=== PATIENT | female | born 1975 | race Caucasian/White ===

== ENCOUNTER 2017-02-27 00:29 | Inpatient (IN) | payer SELFPAY ==
[2017-02-27 00:43] LABS: Hemoglobin 15.3 g/dL (12.0-16.0); Red Blood Cell (RBC) Count 4.64 mill/uL (4.20-5.40); White Blood Cell (WBC) Count 11.6 thou/uL (4.8-10.8)
[2017-02-27 00:44] LABS: #Basophils 0.1 thou/uL (0.0-0.2); #Eosinphils 0.1 thou/uL (0.0-0.7); #Monocytes 0.5 thou/uL (0.11-0.59); #Neutrophils 7.9 thou/uL (1.40-6.50); %Basophils 0.8 % (0.0-1.0); %Eosinophils 0.8 % (0.0-10.0); %Lymphocytes 25.9 % (21.0-51.0); %Monocytes 4.4 % (0.0-10.0); Mean Corpuscular HGB CONC 33.6 g/dL (32.0-36.0); Mean Corpuscular Hemoglobin 33.1 pg (27.0-31.0); Mean Corpuscular Volume 98.4 fl (81.0-99.0); Mean Platelet Volume 8.1 fL (7.4-10.4); Platelet Count 220 thou/uL (130-400); RBC Distribution Width 11.6 % (11.5-14.5)
[2017-02-27 00:53] LABS: Bilirubin Negative (Negative); Blood, Urine Negative (Negative); Clarity CLEAR (Clear); Glucose, Urine (Dipstick) Negative (Negative); Leukocyte Negative (Negative); Nitrite Negative (Negative); Protein, Urine (Dipstick) Negative (Neg-Trace); Urobilinogen 0.2 mg/dL (0.2-1.0)
[2017-02-27 01:03] LABS: Amphetamine Not Detected (NotDetected); Barbiturates Screen Not Detected (NotDetected); Benzodiazepine Screen Detected (NotDetected); Cocaine Metabolite Screen Detected (NotDetected); Medtox Control Line Valid? VALID (VALID); Medtox Reader # READER 4; Methadone Not Detected (NotDetected); Methamphetamine Not Detected (NotDetected); Opiate Screen Not Detected (NotDetected); Oxycodone Screen Not Detected (NotDetected); Phencyclidine (PCP) Not Detected (NotDetected); THC/Cannabinoid Screen Detected (NotDetected); Tricyclic Screen Not Detected (NotDetected)
[2017-02-27 01:10] LABS: ALT (SGPT) 24 U/L (8-55); AST (SGOT) 18 U/L (5-34); Albumin 4.2 g/dL (3.5-5.0); Alkaline Phosphatase 78 U/L (40-150); Anion Gap 16 mmol/L (10-20); BUN (Urea Nitrogen) 14 mg/dL (7.0-18.7); Bilirubin, Total 0.4 mg/dL (0.2-1.2); Calc. Creatinine Clearance 0 mL/min (70-130); Carbon Dioxide 22 mmol/L (22-29); Chloride 104 mmol/L (98-107); Estimated GFR-MDRD 78; Globulin 3.6 g/dL (2.4-3.5); Glucose 124 mg/dL (70-105); Potassium 3.5 mmol/L (3.5-5.1); Protein, Total 7.8 g/dL (6.0-8.3); Sodium 138 mmol/L (136-145)
[2017-02-27 01:11] LABS: Acetaminophen Less than 6.0 mcg/mL (10.0-30.0); Alcohol Less than 10 mg/dL (Less than 10); Salicylate Less than 8.0 mg/dL (15.0-30.0)
[2017-02-27 01:29] LABS: Thyroid Stimulating Hormone 3.4098 uIU/mL (0.35-4.94)
[2017-02-27 01:41] LABS: Base Excess-Venous -4.9 mmol/L (-30.0-30.0); Bicarbonate (HCO3v) 23.1 mmol/L (1.0-85.0); CO2 Tension (PvCO2) 53.8 mmHg (41.0-51.0); Calcium, Ionized 1.06 mmol/L (1.12-1.32); Hemoglobin - Calc 14.7 g/dL (12.0-18.0); Potassium 3.9 mmol/L (3.4-4.7); T. Carbon Dioxide 24.8 mmol/L (1.0-85.0); pH (Venous) 7.242 (7.35-7.45); vO2 Saturation-calc 86.6 % (0.0-100.0)
[2017-02-27 01:43] LABS: BHCG - Serum Negative (NEGATIVE); Pregs Control Background? CLEAR/WHITE (CLR/WHITE); Pregs Control Bar Appear? YES (CONTROL BAR)
[2017-02-27 02:43] LABS: Actual Bicarbonate (HCO3v) 17 mEq/L (22-26); Base Excess -6.4 mEq/L (0 (+/- 2.5)); Calcium, Ionized 1.03 mmol/L (1.16-1.32); Chloride (ABG LAB) 106 mmol/L (98-106); Hematocrit-VBG 42.7 % (35-45); Hemoglobin (Hb) 14.4 g/dL (11.7-15.5); Potassium - ABG Lab 4.6 mmol/L (3.70-5.30); Sodium 138.3 mmol/L (133-146); pH (venous) 7.38 (7.35-7.45)
[2017-02-27 02:44] LABS: Analyzer IN Cardio ER
[2017-02-27] MEDS ORDERED: Lorazepam 2 MG/ML VIAL ONE ×2 (05:36→05:44)
[2017-02-27] MEDS ORDERED: Haloperidol Lactate 5 MG/ML VIAL ONE (05:45)
--- NOTE | 2017-02-27 07:41 | CT ---
PRELIMINARY REPORT/[facility]/EMERGENCY AFTER HOURS PROCEDURE: EXAM: CT Head Without Intravenous Contrast CLINICAL HISTORY: 41 years old, female; Signs and symptoms; Altered mental status/memory loss; Confusion or disorientat ion; Patient HX: ; Pt presents via ems, found unresponsive in friends front yard, which he proceeded to put her in the car and took her to her parents house which was where ems found her on arrival to scene. Pt has HX of seizures, overdose on xanax, and havy alcohol intake. Ems reports gcs of 8, responsive to painful stimuli. Zofran and ivf given en route and nasal trumpet in place TECHNIQUE: Axial computed tomography images of the head/brain without intravenous contrast. COMPARISON: No relevant prior studies available. FINDINGS: No definite acute skull fracture. Mild mucosal thickening in the ethmoid sinuses. Included paranasal sinuses otherwise appear essentially clear. No acute intracranial hemorrhage or mass effect. Ventricle size is normal for age. No definite acute infarct by CT. MRI could be more sensitive/specific for an acute infarct if clinically indicated. IMPRESSION: No acute intracranial bleed or mass effect. No definite acute infarct by CT, see above. Thank you for allowing us to participate in the care of your patient. Dictated and Authenticated by: John Lima MD 02/27/2017 1:32 AM Central Time ([place] & [place]) FINAL REPORT CT BRAIN WITHOUT CONTRAST: I agree with the preliminary report given by Dr. Jhon Lima of [facility]. POS: [facility]
--- NOTE | 2017-02-27 07:43 | CT ---
PRELIMINARY REPORT/[facility]/EMERGENCY AFTER HOURS PROCEDURE: EXAM: CT Cervical Spine Without Intravenous Contrast CLINICAL HISTORY: 41 years old, female; Injury or trauma; Injury Posible fall; Initial encounter; Abrasion; Patient HX: Pt presents via ems, found unresponsive in friends front yard, which he proceeded to put her in the car and took her to her parents house which was where ems found her on arrival to scene. Pt has HX of seizures, overdose on xanax, and havy alcohol intake. Ems reports gcs of 8, responsive to painful st imuli. Zofran and ivf given en route and nasal trumpet in place TECHNIQUE: Axial computed tomography images of the cervical spine without intravenous contrast. Coronal and sagittal reformatted images were created and reviewed. COMPARISON: No relevant prior studies available. FINDINGS: On axial CT images, no definite acute fracture is visible. Sagittal and coronal reconstructions show no fracture or subluxation. Mild degenerative disc changes and facet joint arthritis at several levels. No definite/significant disc herniation by CT, MRI could be more sensitive if clinically indicated. IMPRESSION: No definite acute fracture or subluxation by CT. Other findings discussed above. Thank you for allowing us to participate in the care of your patient. Dictated and Authenticated by: John Lima MD 02/27/2017 1:36 AM Central Time ([place] & [place]) FINAL REPORT CT CERVICAL SPINE WITH CORONAL AND SAGITTAL REFORMATIONS: I agree with the preliminary report given by Dr. John Lima of [facility]. POS: [facility]
--- NOTE | 2017-02-27 07:52 | RAD ---
CHEST ONE VIEW: HISTORY: Fall. COMPARISON: None. FINDINGS: Heart size is enlarged. There are perihilar air space opacities. No pneumothorax or effusion. IMPRESSION: Mild cardiomegaly and air space opacity that may be reflective of edema. Follow-up two views of the chest, full inspiration, recommended. POS: [facility]
[2017-02-27] MEDS ORDERED: Acetaminophen 650 MG Suppository PR PRN (13:33)
[2017-02-27] MEDS ORDERED: Bisacodyl 5 MG TAB PO PRN (13:33)
[2017-02-27] MEDS ORDERED: Acetaminophen 325 MG TAB PO PRN (13:33)
[2017-02-27] MEDS ORDERED: Ondansetron ODT 4 MG TAB PO PRN (13:33)
[2017-02-27] MEDS ORDERED: Ondansetron HCl/PF 4 MG/2 ML Vial IVP PRN (13:33)
[2017-02-27] MEDS ORDERED: Haloperidol Lactate 5 MG/ML VIAL SLOW IVP PRN (13:34)
--- NOTE | 2017-02-27 14:42 | HP ---
PRIMARY CARE PHYSICIAN: Alba Espinoza M.D. CHIEF COMPLAINT: Found unresponsive. HISTORY OF PRESENT ILLNESS: This is a 41-year-old white female with a known history of drug abuse and episodes of being found intoxicated at the 1st of the month after she gets paid. All history is taken from EMS and ER notes that came from the mom, as patient is still somewhat sedated and does not remember anything that happened. The patient was reportedly found unresponsive in her friend's front yard. The friend reportedly put her in a car and took her to her parents' house, which is where EMS found her on arrival. Per the patient's mother to the EMS, the patient had a history of seizures, previous overdose on Xanax, and heavy alcohol intake. The patient had a GCS of 8, responsive to painful stimuli, and got IV fluids and Zofran en route. In the hospital, the patient started to wake up, was very agitated and not following commands. She got a couple doses of Ativan and a dose of Haldol and then quieted down. She was on 4 liters of oxygen when brought in by EMS and remains on that now. She did drop to 93% when they tried to titrate her to 3 liters earlier. The patient started to wake up a little bit more recently, she is still very sedated and sleepy, but she does not remember anything about what happened before she came in. She denies taking any alcohol or illicit drugs. PAST MEDICAL HISTORY: All medical history taken from the chart and from what little the patient is able to remember right now. No medical problems. PAST SURGICAL HISTORY: Unknown. PAST PSYCHIATRIC HISTORY: Depression. Patient did not report a history of suicide attempt or suicide ideation, but it is mentioned in the chart. SOCIAL HISTORY: Unknown. FAMILY HISTORY: Unknown. ALLERGIES: No known drug allergies. MEDICATIONS: Fluoxetine 40mg daily REVIEW OF SYSTEMS: The patient currently denies any pain, does not remember what happened. She is still too sedated and full review of systems is unobtainable at this time. PHYSICAL EXAMINATION: VITAL SIGNS: Blood pressure 148/98; pulse 76; respirations 18; temperature 99.1 , it was initially 93.9 and has come up after being put on a Alicia Hugger, now she is just under a blanket; O2 sat 100% on 4 liters currently. GENERAL: This is a well-developed, obese white female, who is snoring loudly. Did wake up after sternal rub, and was able to report her name and a little bit about her psychiatric history. She denied any pain, denied knowing what had happened, and then she went back to sleep. It is hard to keep her awake. HEENT: Eyes, pupils bilaterally very dilated, but equal and reactive. Oropharynx clear without exudate. NECK: Supple, no lymphadenopathy, no thyroid nodules or enlargement. No evidence of bruising or deformity. HEART: Regular rate and rhythm. No murmurs, rubs, or gallops. LUNGS: Clear to auscultation bilaterally. No wheezes, crackles, or rhonchi. ABDOMEN: Soft, obese, nontender to palpation, normoactive bowel sounds, no hepatosplenomegaly or other masses. EXTREMITIES: No clubbing, cyanosis, or edema. No bruising visible. She did roll over onto her right hip and felt a little bit uncomfortable and rolled over to her left when she was coming back to sleep. No visible deformity in the right hip and no tenderness to palpation on my exam. SKIN: No rashes or other lesions noted. NEUROLOGIC: Seems to be moving all limbs equally and has no facial droop. PSYCHIATRIC: Unable to obtain at this time. The patient denies current suicidal ideation, depression, or any suicide attempt. LABORATORY DATA: CBC, white blood cell count 11.6. Remainder is completely normal. Complete metabolic panel was notable only for a glucose of 124. Her lactic acid was initially 5.2 and it came down to 2 after fluids. TSH normal. Serum test negative. Urinalysis negative for infection. Toxicology, she had a urine drug screen positive for benzodiazepines. This may have been done after the Ativan, uncertain. Positive also for cocaine and cannabinoids. Her serum drug screen was negative for salicylates, acetaminophen, or alcohol. X-Ray: I did review the x-ray along with the radiologist's report. The patient appears to have some mild puffiness in and around perihilar region that may indicate some pulmonary edema and it is a poor film with rotation. There is no severe pulmonary edema or massive cardiomegaly visualized. No focal infiltrates. CERVICAL SPINE CT: Revealed no evidence of fracture or dislocation. The brain CT was negative for acute findings. EKG: I did review the EKG done in the emergency room. It does show normal sinus rhythm at 73 beats per minute. There is a prolonged QT. No evidence of arrhythmia. No evidence of ST changes. ASSESSMENT AND PLAN: 1. Altered mental status, likely with drug overdose with her history of previous drug overdose and regular alcohol or drug abuse. She does have benzodiazepines, cocaine, and cannabinoids in her urine. Patient is starting to wake up and is less agitated than she was earlier. Hopefully, she will continue to clear over the course of the day. At that time, we will reassess and make certain she did not have any suicidal thoughts or took an intentional overdose. 2. Relative hypoxia. The patient is requiring oxygen currently. This may just be due to respiratory suppression. However, there is always a possibility of aspiration versus what might be some pulmonary edema on her chest x-ray. We will get a brain natriuretic peptide and we will continue to monitor and wean oxygen as able. If she does spike a fever or her white count increases further or has any of cough then we may need to consider treating for aspiration pneumonia. At this time, she does not appear to have any. 3. History of depression. We will resume patient's home medications once she clears. 4. Gastrointestinal prophylaxis. Put the patient on Pepcid twice a day. 5. Deep vein thrombosis prophylaxis. Put the patient on sequential compression devices and RUBIA while in bed. 6. Code status, unable to clarify this with the patient. For now, she is a FULL CODE. We will need to reassess her mental status later. HO
[2017-02-27] MEDS: Famotidine 20 MG TAB PO SCH (21:50)
[2017-02-28 05:35] LABS: #Basophils 0.1 thou/uL (0.0-0.2); #Eosinphils 0.1 thou/uL (0.0-0.7); #Lymphocytes 2.7 thou/uL (1.20-3.40); #Monocytes 0.4 thou/uL (0.11-0.59); #Neutrophils 4.9 thou/uL (1.40-6.50); %Basophils 0.8 % (0.0-1.0); %Eosinophils 1.2 % (0.0-10.0); %Lymphocytes 32.9 % (21.0-51.0); %Monocytes 4.8 % (0.0-10.0); %Neutrophils 60.4 % (42.0-75.0); Hemoglobin 14.6 g/dL (12.0-16.0); Mean Corpuscular HGB CONC 33.2 g/dL (32.0-36.0); Mean Corpuscular Hemoglobin 32.2 pg (27.0-31.0); Mean Corpuscular Volume 96.9 fl (81.0-99.0); Mean Platelet Volume 8.7 fL (7.4-10.4); Platelet Count 204 thou/uL (130-400); RBC Distribution Width 11.9 % (11.5-14.5); Red Blood Cell (RBC) Count 4.53 mill/uL (4.20-5.40); White Blood Cell (WBC) Count 8.1 thou/uL (4.8-10.8)
[2017-02-28 06:23] LABS: Anion Gap 13 mmol/L (10-20); BUN (Urea Nitrogen) 7 mg/dL (7.0-18.7); Calc. Creatinine Clearance 139 mL/min (70-130); Calcium 9.3 mg/dL (7.8-10.44); Carbon Dioxide 23 mmol/L (22-29); Chloride 107 mmol/L (98-107); Estimated GFR-MDRD 81; Glucose 98 mg/dL (70-105); Potassium 3.3 mmol/L (3.5-5.1); Sodium 140 mmol/L (136-145)
[2017-02-28] MEDS: Famotidine 20 MG TAB PO SCH (08:15)
[2017-02-28 11:35] VITALS: BP 141/84; TEMP 98.1
[2017-02-28] MEDS ORDERED: Lorazepam 1 MG TAB PO PRN (13:10)
--- NOTE | 2017-02-28 14:30 | PDOC.PN ---
- Subjective Encounter Start Date: 02/28/17 Encounter Start Time: 13:30 Subjective: Patient awake. Reports chronic back pain. Crying when talking to parents -: about wanting to go home. Denies Suicide attempt. - Objective MAR Reviewed: Yes Vital Signs & Weight: Vital Signs (12 hours) Temp Pulse Resp BP Pulse Ox 02/28/17 11:33 98.1 F 92 17 141/84 H 98 02/28/17 08:15 98.4 F 95 20 95 02/28/17 07:00 98.4 F 95 20 143/78 H 95 02/28/17 04:00 98.4 F 118 H 17 134/96 H 96 Weight Weight 204 lb 7 oz I&O: 02/27/17 02/28/17 03/01/17 06:59 06:59 06:59 Intake Total 550 Output Total 1850 350 Balance -1300 -350 Result Diagrams: 02/28/17 04:32 02/28/17 04:32 Phys Exam - Physical Examination Constitutional: NAD HEENT: moist MMs Respiratory: no wheezing, no rales, no rhonchi Cardiovascular: RRR, no significant murmur Gastrointestinal: soft, positive bowel sounds Neurological: non-focal, moves all 4 limbs Psychiatric: A&O x 3 Deviation from normal: anxious Dx/Plan (1) Drug overdose, multiple drugs Code(s): T50.901A - POISONING BY UNSP DRUG/MEDS/BIOL SUBST, ACCIDENTAL, INIT Status: Resolved (2) Encephalopathy acute Code(s): G93.40 - ENCEPHALOPATHY, UNSPECIFIED Status: Resolved (3) Depression Code(s): F32.9 - MAJOR DEPRESSIVE DISORDER, SINGLE EPISODE, UNSPECIFIED Status : Chronic - Plan Patient awake and alert. No acute symptoms. Will d/c gamez, have patient -: ambulate. If ambulating well can go home. Parents here to bring patient -: home. No evidence SI or severe depression. Do not believe this was a suicid -: attempt. Patient counselled to stop abusing drugs. * . - Discharge Day Encounter end time: 14:00
--- NOTE | 2017-03-01 06:10 | DIS ---
PRIMARY CARE PHYSICIAN: Alba Espinoza M.D. ADMISSION DIAGNOSES: 1. Drug overdose. 2. Altered mental status secondary to #1. 3. Hypoxia. 4. History of depression. DISCHARGE DIAGNOSES: 1. Unintentional drug overdose. 2. Altered mental status, resolved. 3. Hypoxia, resolved. 4. History of depression. PROCEDURES: 1. CT of the brain without contrast showing no evidence of acute intracranial bleed or mass effect. 2. Cervical spine CT showing no evidence of acute fracture subluxation. 3. Chest x-ray showing mild cardiomegaly and some questionable airspace opacity might be reflective of edema.. CONSULTATIONS: None. PERTINENT LABORATORY DATA: Lactic acid 5.2 on initial presentation down to 2 after fluids. Brain na triuretic peptide was mildly elevated at 119. SUMMARY OF HOSPITAL COURSE: This is a 41-year-old white female with a known history of depression an wilian previous drug overdoses many times unintentional, says this usually will happen in the beginning of the month after she gets her monthly check. The patient was found down at a friend's front yard, an d he brought her back home. She was unresponsive, so EMS was called and patient was brought into the hospital, she was stable, gag reflex and airway protection, but was otherwise started to become comb ative. She was given little bit of Ativan and Haldol. The patient slept overnight. Today, she woke up, she was alert and oriented x3. She has her chronic back pain. She denies knowledge of what hap pened and states she is not trying to kill herself and has no current depression or suicidal ideation . The patient is eating very well, has been off oxygen without any desaturations and she ambulated w ell without need for assistance, so she is stable for discharge home. DISCHARGE MANAGEMENT: Discharged home. Follow up with primary care physician in the next week. ACTIVITIES: As tolerated. DISCHARGE DIET: Regular diet. MEDICATIONS: The patient is to resume all her home medications. These were 1. Prozac 40 mg daily. 2. Ativan 2 mg twice a day. 3. Trazodone 100 mg daily. 4. Requip, unknown dose at night. 5. I also counselled her to stop use of drugs like cocaine and to not take her medications more than prescribed.
[2017-03-01] MEDS ORDERED: FLUoxetine HCl 20 MG CAP PO SCH (09:00)
== END 2017-02-28 16:09 | disposition home or self-care (01) | DRG 917 ==
LOC: EDBD 00:29 → ERS 00:29 → ERHOLD 03:06 → IMCU/EMU 15:31
PROVIDERS: ADMIT Internal Medicine; ATTEND Internal Medicine
DX: T65.91XA Toxic effect of unspecified substance, accidental (unintentional), initial encounter (principal); G93.40 Encephalopathy, unspecified; F10.10 Alcohol abuse, uncomplicated; R09.02 Hypoxemia; F32.9 Major depressive disorder, single episode, unspecified; F14.10 Cocaine abuse, uncomplicated; G89.29 Other chronic pain; M54.9 Dorsalgia, unspecified; F12.10 Cannabis abuse, uncomplicated; Z91.5 Personal history of self-harm
CPT/HCPCS: 36415; 36416; 51702; 70450; 71045; 72125; 80048; 80053; 80306; 80307; 81003; 82330; 82803; 82805; 83605; 83880; 84443; 84703; 85025; 93005; 96361; 96374; 96375; J1630; J2060